=== PATIENT | female | born 1970 | race Caucasian/White ===

== ENCOUNTER 2022-07-08 12:56 | Outpatient (CLI) | payer OTHER, SELFPAY ==
[2022-07-08 22:15] LABS: Chloride* 105 mmol/L (96-114); Potassium* 3.8 mmol/L (3.6-5.1); Sodium* 138 mmol/L (135-149)
[2022-07-08 22:17] LABS: Creatinine* 0.6 mg/dL (0.5-1.5); Estimated Glomerular Filt Rate 109 ml/min
[2022-07-08 22:18] LABS: Blood Urea Nitrogen* 9 mg/dL (7-30); Carbon Dioxide* 28 mmol/L (20-32); Glucose* 94 mg/dL (60-115)
[2022-07-08 22:19] LABS: Calcium* 9.1 mg/dL (8.4-10.6)
== END 2022-07-08 12:57 | disposition home or self-care (01) ==
LOC: LKVREF 12:56
PROVIDERS: PCP Emergency Medicine; Visit Provider Emergency Medicine
DX: I10 Essential (primary) hypertension (principal)
CPT/HCPCS: 80048

== ENCOUNTER 2022-10-15 11:25 | Outpatient (CLI) | payer OTHER, SELFPAY | END 2022-10-15 11:26 | disposition home or self-care (01) | PROVIDERS: PCP Emergency Medicine; Visit Provider Emergency Medicine | DX: I10 Essential (primary) hypertension (principal) | CPT/HCPCS: 80048 ==

== ENCOUNTER 2023-04-16 13:23 | Outpatient (CLI) | payer OTHER, SELFPAY | END 2023-04-16 13:24 | disposition home or self-care (01) | PROVIDERS: PCP Emergency Medicine; Visit Provider Emergency Medicine | DX: Z00.00 Encounter for general adult medical examination without abnormal findings (principal); I10 Essential (primary) hypertension; E55.9 Vitamin D deficiency, unspecified; Z13.1 Encounter for screening for diabetes mellitus; Z13.6 Encounter for screening for cardiovascular disorders | CPT/HCPCS: 80048; 80061; 82306 ==

== ENCOUNTER 2023-04-28 15:05 | Outpatient (CLI) | payer OTHER, SELFPAY ==
--- NOTE | 2023-04-28 15:20 | CRLHL7_ITS ---
For Patients: As a result of the Century Cures Act, medical imaging exams and procedure reports are released immediately into your electronic medical record. You may view this report before your referring provider. If you have questions, please contact your health care provider. BILATERAL SCREENING MAMMOGRAM WITH COMPUTER-AIDED DETECTION AND TOMOSYNTHESIS TECHNIQUE: CC and MLO views were obtained. These mammographic images have been obtained using full-field digital technique. These mammographic images were interpreted with the benefit of computer-aided detection. Breast Tomosynthesis was used in this interpretation. COMPARISON FILM: 11/15/21, 06/07/12. FINDINGS: The breasts are heterogeneously dense, which may obscure small masses IMPRESSION: There is no radiographic evidence for malignancy. ASSESSMENT: BI-RADS Category 1: Negative RECOMMENDATION: Routine screening mammogram in 1 year. A lay language report of this examination will be provided to the patient. Bry Londono M.D. Diagnostic Radiologist [email or web address] ZAHRA/Dictated by: Bry Londono MD @ 04/29/2023 12:05:00 PM (Electronically Signed)
== END 2023-04-28 15:06 | disposition home or self-care (01) ==
LOC: MAMMO 15:06
PROVIDERS: PCP Emergency Medicine; Visit Provider Emergency Medicine
DX: Z12.31 Encounter for screening mammogram for malignant neoplasm of breast (principal); R92.2 Inconclusive mammogram
CPT/HCPCS: 77063; 77067

== ENCOUNTER 2023-05-04 17:18 | Outpatient (CLI) | payer OTHER, SELFPAY | END 2023-05-04 17:19 | disposition home or self-care (01) | PROVIDERS: PCP Emergency Medicine; Visit Provider Nurse Practitioner Family | DX: R30.0 Dysuria (principal) | CPT/HCPCS: 87086; 87186 ==

== ENCOUNTER 2023-05-22 11:11 | Outpatient (CLI) | payer OTHER, SELFPAY ==
--- NOTE | 2023-05-22 12:27 | W.ANESCHARGE ---
Anesthesia Charges Start Date/Time Anesthesia Start Date: 05/22/23 Anesthesia Start Time: 12:00 Stop Date/Time Anesthesia Stop Date: 05/22/23 Anesthesia Stop Time: 12:30
== END 2023-05-22 11:12 | disposition home or self-care (01) ==
LOC: OP CLINIC 11:12
PROVIDERS: PCP Emergency Medicine; Visit Provider Internal Medicine
DX: Z12.11 Encounter for screening for malignant neoplasm of colon (principal); Z80.0 Family history of malignant neoplasm of digestive organs
CPT/HCPCS: 00812; 45378; J2704

== ENCOUNTER 2024-08-24 08:59 | Outpatient (CLI) | payer OTHER, SELFPAY | END 2024-08-24 09:00 | disposition home or self-care (01) | LOC: NFLDREF 09-02 01:35 | PROVIDERS: PCP Emergency Medicine; Referring Provider Emergency Medicine; Visit Provider Emergency Medicine | DX: E55.9 Vitamin D deficiency, unspecified (principal); I10 Essential (primary) hypertension; Z13.220 Encounter for screening for lipoid disorders | CPT/HCPCS: 80053; 80061; 82306 ==